=== PATIENT | female | born 1965 | race Caucasian/White ===

== ENCOUNTER 2020-02-19 07:54 | Outpatient (CLI) | payer BC, MEDICAID ==
[2020-02-19] VITALS (17 sets, daily range): BP systolic 108–143; BP diastolic 73–89
[~2020-02-19 07:54] MED LIST: ALPR-624 PO; CHOL10002 PO; ESTR0.5T PO; HYDR-4353 PO; PREN1TAB79 PO; RANI300T7 PO
== END 2020-02-19 23:59 | disposition home or self-care (01) ==
LOC: CARD DIAG 07:54
PROVIDERS: ATTEND Internal Medicine Interventional Cardiology
DX: R42 Dizziness and giddiness (principal); H81.4 Vertigo of central origin
CPT/HCPCS: 93660